=== PATIENT | female | born 1960 | race Hispanic/Latino ===

== ENCOUNTER 2017-07-20 20:59 | Emergency (ER) | payer OTHER ==
--- NOTE | 2017-07-20 22:39 | RAD ---
THREE VIEWS OF THE LEFT FOOT: 07/20/17 INDICATION: Injury to the left foot. FINDINGS: There is a mild sized bunion overlying the great toe. 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 Li sfranc alignment is preserved. Accessory ossicle adjacent to the cuboid. IMPRESSION: No acute osseous abnormality. POS: [facility]
--- NOTE | 2017-07-20 22:42 | RAD ---
THREE VIEWS OF THE LEFT ANKLE; 07/20/17 INDICATION: Left ankle injury. FINDINGS: There is a minimally displaced spiral fracture involving the distal fibular shaft and lateral malleol us. The distal fracture fragment is just minimally displaced laterally one cortex width. No additiona l fracture grossly evident. IMPRESSION: Minimally displaced lateral malleolus fracture. POS: [facility]
[2017-07-20] MEDS ORDERED: Acetaminophen/Codeine 30-300mg Tablet ONE (23:05)
== END 2017-07-20 23:12 | disposition home or self-care (01) ==
LOC: EDBD → ERS 20:59
DX: S82.61XA Displaced fracture of lateral malleolus of right fibula, initial encounter for closed fracture (principal); S93.421A Sprain of deltoid ligament of right ankle, initial encounter; W19.XXXA Unspecified fall, initial encounter
CPT/HCPCS: 29515

== ENCOUNTER 2017-09-06 09:34 | Outpatient (CLI) | payer OTHER ==
--- NOTE | 2017-09-06 15:43 | MMO ---
BILATERAL SCREENING MAMMOGRAM: Date: 09/06/17 COMPARISON: 07/06/15. HISTORY: Annual screening exam. This patient's mammogram was interpreted with the assistance of computer-aided detection. FINDINGS: Scattered fibroglandular changes of both breasts are seen. Stable area of slight asymmetry in the inn er left breast is again noted. Vascular calcifications are seen. There is no dominant mass, suspiciou s calcification, or other sign of malignancy. IMPRESSION: BIRADS 2: Benign Finding(s) POS: [facility]
== END 2017-09-06 09:35 | disposition home or self-care (01) ==
LOC: SCSMAMMO 09:34
PROVIDERS: ATTEND Family Medicine
DX: Z12.31 Encounter for screening mammogram for malignant neoplasm of breast (principal)
CPT/HCPCS: 77067